=== PATIENT | female | born 1985 | race African-American/Black ===

== ENCOUNTER 2018-03-14 00:15 | Emergency (ER) | payer OTHER ==
[~2018-03-14] VITALS: Ht 154.9 cm; Wt 104.3 kg
[~2018-03-14 00:15] MED LIST: BIRTH CONTROL; DEPO-PROVERA; NORCO 5-325 TA1 EACH PO
[2018-03-14 00:41] LABS: URINE BILIRUBIN NEGATIVE (Negative); URINE BLOOD NEGATIVE (Negative); URINE CLARITY CLEAR; URINE COLOR YELLOW; URINE GLUCOSE-RANDOM* NEGATIVE (Negative); URINE KETONES NEGATIVE (Negative); URINE PROTEIN (DIPSTICK) NEGATIVE (Negative); URINE SPECIFIC GRAVITY >= 1.030 (1.005-1.035)
[2018-03-14 00:42] LABS: URINE LEUKOCYTES-REFLEX NEGATIVE (Negative); URINE NITRITE-REFLEX NEGATIVE (Negative); URINE UROBILINOGEN 0.2 E.U./dl (0.2-1.0)
[2018-03-14 01:01] LABS: HEMATOCRIT 26.4 % (37.0-47.0); HEMOGLOBIN 7.7 gm/dL (12.0-15.0); MCHC 29.3 g/dL (28.0-37.0); MCV 61.3 fL (80.0-100.0); PLATELET COUNT 303 thou/uL (150-400); RBC 4.31 mil/uL (4.20-5.00); RDW 20.1 % (10.5-14.5); WBC 4.8 thou/uL (4.0-11.0)
[2018-03-14 01:05] LABS: CALCIUM 8.6 mg/dL (8.5-10.1); CREATININE 0.9 mg/dL (0.6-1.0); POTASSIUM 3.6 mmol/L (3.5-5.1)
[2018-03-14 01:28] LABS: ABSOLUTE NEUTROPHILS 3.9 thou/uL (1.4-8.2)
[2018-03-14 01:30] LABS: ANISOCYTOSIS 2+; HYPOCHROMASIA 3+; MICROCYTES 3+; PLATELET ESTIMATE NORMAL; POLYCHROMASIA OCCASIONAL; TARGET CELLS 1+; TEARDROPS 1+
[2018-03-14] MEDS ORDERED: ZOFRAN ODT4 MG PO (03:24)
[2018-03-14] MEDS ORDERED: IBUPROFEN 800800 M1 PO (03:24)
[2018-03-14] MEDS ORDERED: OSELB75 PO (03:24)
[2018-03-14 03:35] VITALS: BP 127/76
== END 2018-03-14 03:46 | disposition home or self-care (01) ==
LOC: ER 00:15
PROVIDERS: Emergency Medicine
DX: J09.X2 Influenza due to identified novel influenza A virus with other respiratory manifestations (principal); F41.9 Anxiety disorder, unspecified; Z91.040 Latex allergy status; R11.2 Nausea with vomiting, unspecified